=== PATIENT | male | born 1950 | race Caucasian/White ===

== ENCOUNTER 2016-08-05 13:21 | Outpatient (CLI) | payer MEDICARE ==
[2016-08-05 14:07] LABS: Hematocrit 35.9 % (42.0-52.0); Mean Platelet Volume 6.6 fL (7.4-10.4); Red Blood Cell (RBC) Count 3.75 mill/uL (4.70-6.10); White Blood Cell (WBC) Count 6.6 thou/uL (4.8-10.8)
[2016-08-05 14:22] LABS: Anion Gap 17 mmol/L (10-20); BUN (Urea Nitrogen) 10 mg/dL (8.4-25.7); Calc. Creatinine Clearance 0 mL/min (70-130); Calcium 9.2 mg/dL (7.8-10.44); Carbon Dioxide 23 mmol/L (23-31); Chloride 99 mmol/L (98-107); Estimated GFR-MDRD 84
== END 2016-08-05 13:22 | disposition home or self-care (01) ==
LOC: BURLAB 13:21
PROVIDERS: ATTEND Podiatrist Foot & Ankle Surgery
DX: Z01.818 Encounter for other preprocedural examination (principal); M20.11 Hallux valgus (acquired), right foot
CPT/HCPCS: 36415; 80048; 85027

== ENCOUNTER 2016-09-01 11:03 | Outpatient (CLI) | payer MEDICARE ==
[2016-09-01 12:34] LABS: Anion Gap 13 mmol/L (10-20); BUN (Urea Nitrogen) 10 mg/dL (8.4-25.7); Calc. Creatinine Clearance 0 mL/min (70-130); Calcium 9.1 mg/dL (7.8-10.44); Carbon Dioxide 23 mmol/L (23-31); Chloride 100 mmol/L (98-107); Estimated GFR-MDRD 85; Glucose 91 mg/dL (80-115); Potassium 4.2 mmol/L (3.5-5.1); Sodium 132 mmol/L (136-145)
== END 2016-09-01 11:04 | disposition home or self-care (01) ==
LOC: BURLAB 11:03
PROVIDERS: ATTEND Internal Medicine Cardiovascular Disease
DX: I10 Essential (primary) hypertension (principal)
CPT/HCPCS: 36415; 80048

== ENCOUNTER 2016-09-24 11:59 | Outpatient (CLI) | payer MEDICARE ==
[2016-09-24 12:39] LABS: ALT (SGPT) 22 U/L (0-55); AST (SGOT) 34 U/L (5-34); Albumin 3.9 g/dL (3.4-4.8); Alkaline Phosphatase 75 U/L (40-150); Anion Gap 16 mmol/L (10-20); BUN (Urea Nitrogen) 10 mg/dL (8.4-25.7); Bilirubin, Total 0.5 mg/dL (0.2-1.2); Calc. Creatinine Clearance 0 mL/min (70-130); Calcium 8.8 mg/dL (7.8-10.44); Carbon Dioxide 22 mmol/L (23-31); Cardiac Risk 3.2 (Less than 4.5); Chloride 94 mmol/L (98-107); Cholesterol 145 mg/dL (< 200 Desired); Estimated GFR-MDRD 68; Globulin 3.1 g/dL (2.4-3.5); Glucose 103 mg/dL (80-115); HDL Cholesterol 46 mg/dL (>60 Neg Risk); LDL Cholesterol, Calculated 83 mg/dL; Potassium 5.3 mmol/L (3.5-5.1); Sodium 127 mmol/L (136-145); Triglycerides 82 mg/dL (Less than 150)
[2016-09-24 12:58] LABS: PSA-Symptomatic (DIAGNOSTIC) Less than 0.02 ng/mL (0-4.0); Thyroid Stimulating Hormone 1.9321 uIU/mL (0.35-4.94)
[2016-09-24 13:39] LABS: Eosinophils 8 % (0-10); Hemoglobin 11.6 g/dL (14.0-18.0); Lymphocytes 17 % (21-51); MDiff Complete? YES; Mean Corpuscular HGB CONC 33.1 g/dL (32.0-36.0); Mean Corpuscular Hemoglobin 32.4 pg (27.0-31.0); Mean Corpuscular Volume 97.9 fl (80.0-94.0); Mean Platelet Volume 6.8 fL (7.4-10.4); Monocytes 16 % (0-10); Neutrophil 59 % (42-75); Platelet Count 348 thou/uL (130-400); RBC Distribution Width 11.3 % (11.5-14.5); Red Blood Cell (RBC) Count 3.59 mill/uL (4.70-6.10); White Blood Cell (WBC) Count 8.6 thou/uL (4.8-10.8)
== END 2016-09-24 12:00 | disposition home or self-care (01) ==
LOC: HPCALD 11:59
PROVIDERS: ATTEND Family Medicine
DX: C61 Malignant neoplasm of prostate (principal); I10 Essential (primary) hypertension
CPT/HCPCS: 36415; 80053; 80061; 84153; 84443; 85025

== ENCOUNTER 2017-06-28 09:17 | Emergency (ER) | payer MEDICARE ==
[2017-06-28 09:47] LABS: PTT 34.4 SEC (22.9-36.1); Prothrombin Time 13.1 SEC (12.0-14.7)
[2017-06-28] MEDS ORDERED: Morphine 4 MG/ML Carpuject ONE (09:55)
[2017-06-28 09:56] LABS: ALT (SGPT) 76 U/L (8-55); AST (SGOT) 67 U/L (5-34); Albumin 3.8 g/dL (3.4-4.8); Alkaline Phosphatase 93 U/L (40-150); Anion Gap 17 mmol/L (10-20); BUN (Urea Nitrogen) 8 mg/dL (8.4-25.7); Bilirubin, Total 0.8 mg/dL (0.2-1.2); Calc. Creatinine Clearance 0 mL/min (70-130); Calcium 8.9 mg/dL (7.8-10.44); Carbon Dioxide 18 mmol/L (23-31); Chloride 92 mmol/L (98-107); Estimated GFR-MDRD 87; Globulin 3.8 g/dL (2.4-3.5); Glucose 126 mg/dL (80-115); Potassium 3.3 mmol/L (3.5-5.1); Protein, Total 7.6 g/dL (5.8-8.1); Sodium 124 mmol/L (136-145)
[2017-06-28] MEDS ORDERED: Metoprolol Tartrate 5 MG/5 ML VIAL ONE (09:56)
[2017-06-28] MEDS ORDERED: methylPREDNISolone Sod Succ/PF 125 MG/2 ML VIAL ONE (09:56)
[2017-06-28] MEDS ORDERED: cefTRIAXone\\ROCEPHIN 2 GM VIAL ONE (09:56)
[2017-06-28 09:57] LABS: #Basophils 0.1 thou/uL (0.0-0.2); #Lymphocytes 0.7 thou/uL (1.20-3.40); #Monocytes 0.9 thou/uL (0.11-0.59); #Neutrophils 5.9 thou/uL (1.40-6.50); %Basophils 1.4 % (0.0-1.0); %Eosinophils 0.2 % (0.0-10.0); %Lymphocytes 9.5 % (21.0-51.0); %Monocytes 12.1 % (0.0-10.0); %Neutrophils 76.9 % (42.0-75.0); Hemoglobin 10.9 g/dL (14.0-18.0); Mean Corpuscular HGB CONC 35.4 g/dL (32.0-36.0); Mean Corpuscular Hemoglobin 32.7 pg (27.0-31.0); Mean Corpuscular Volume 92.4 fl (80.0-94.0); Mean Platelet Volume 6.7 fL (7.4-10.4); Platelet Count 230 thou/uL (130-400); RBC Distribution Width 11.3 % (11.5-14.5); Red Blood Cell (RBC) Count 3.35 mill/uL (4.70-6.10); White Blood Cell (WBC) Count 7.7 thou/uL (4.8-10.8)
[2017-06-28] MEDS ORDERED: Sterile Water 20 ML ONE (10:01)
[2017-06-28] MEDS ORDERED: Sterile Water 10 ML ONE (10:02)
[2017-06-28] MEDS ORDERED: Furosemide 40 MG/4 ML VIAL ONE (10:22)
[2017-06-28] MEDS ORDERED: Oseltamivir 75 MG CAP ONE (10:22)
[2017-06-28 10:27] LABS: Troponin I 0.038 ng/mL (< 0.028)
[2017-06-28 10:30] LABS: CKMB 11.7 ng/mL (0-6.6)
--- NOTE | 2017-06-28 21:09 | RAD ---
PORTABLE CHEST 06/28/17 An AP portable film a [id number] is compared with a 05/29/13 study done at [facility]. The heart size remains normal. Median sternotomy sutures are seen from prior surgery. The left lung i s clear. There is a very vague rounded opacity near the right hilum that measures about 1.9 cm in siz e. I cannot tell if this is an actual mass, a confluence of shadows, or a small patchy infiltrate. I would recommend considerable an elective CT scan of the thorax to remove all doubt. If not that, at t he very least, a good PA chest should be done to take a second look at the area. There are no congest waqar changes or pleural effusions. Degenerative changes are present, particularly in the right shoulde r. IMPRESSION: Vague rounded density near the right hilum of uncertain etiology. See discussion above. Further robert p required; CT preferred. Code T POS: HOME
== END 2017-06-28 11:46 | disposition short-term general hospital (02) ==
LOC: BURERS 09:17
DX: J11.00 Influenza due to unidentified influenza virus with unspecified type of pneumonia (principal); E87.1 Hypo-osmolality and hyponatremia; E78.5 Hyperlipidemia, unspecified; I11.0 Hypertensive heart disease with heart failure; I50.9 Heart failure, unspecified; I25.10 Atherosclerotic heart disease of native coronary artery without angina pectoris; Z79.899 Other long term (current) drug therapy
CPT/HCPCS: 36415; 71045; 80053; 82553; 83605; 83880; 84484; 85025; 85610; 85730; 87040; 93005; 94760; 96374; 96375; A4216; J0696; J1940; J2270; J2930; J7620

== ENCOUNTER 2019-06-01 10:55 | Emergency (ER) | payer MEDICARE ==
[2019-06-01 11:41] LABS: Hemoglobin 5.6 g/dL (14.0-18.0); Mean Corpuscular HGB CONC 30.8 g/dL (32.0-36.0); Mean Corpuscular Hemoglobin 23.8 pg (27.0-31.0); Mean Corpuscular Volume 77.2 fL (78.0-98.0); Mean Platelet Volume 7.1 fL (7.4-10.4); Platelet Count 415 thou/uL (130-400); RBC Distribution Width 15.4 % (11.5-14.5); Red Blood Cell (RBC) Count 2.33 mill/uL (4.70-6.10); White Blood Cell (WBC) Count 6.4 thou/uL (4.8-10.8)
[2019-06-01 11:58] LABS: ALT (SGPT) 20 U/L (8-55); AST (SGOT) 27 U/L (5-34); Albumin 3.5 g/dL (3.4-4.8); Alkaline Phosphatase 69 U/L (40-110); Anion Gap 16 mmol/L (10-20); BUN (Urea Nitrogen) 26 mg/dL (8.4-25.7); Bilirubin, Total 0.6 mg/dL (0.2-1.2); CK (CPK) 209 U/L (30-200); Calc. Creatinine Clearance 0 mL/min (70-130); Calcium 8.6 mg/dL (7.8-10.44); Carbon Dioxide 24 mmol/L (23-31); Chloride 88 mmol/L (98-107); Estimated GFR-MDRD 34; Globulin 2.6 g/dL (2.4-3.5); Glucose 99 mg/dL (80-115); Lipase 19 U/L (8-78); Protein, Total 6.1 g/dL (5.8-8.1); Sodium 125 mmol/L (136-145)
[2019-06-01 12:04] LABS: Burr Cells MODERATE= 6-15 cells (100X) (0-1/hpf); Elliptocytes SLIGHT = 2-5 cells (100X) (0-1/hpf); Eosinophils 5 % (0-10); Lymphocytes 22 % (21-51); MDiff Complete? YES; Microcytosis SLIGHT = 6-15 cells (100X) (0-5/hpf); Monocytes 15 % (0-10); Neutrophil 58 % (42-75); Platelet Morphology Comment Appears Increased; Poikilocytosis MODERATE=16-30 cells (100X) (0-5/hpf); Schistocytes SLIGHT = 2-5 cells (100X) (0-1/hpf)
[2019-06-01] MEDS ORDERED: Pantoprazole 40 MG VIAL ONE (12:12)
[2019-06-01 13:01] LABS: CKMB 7.6 ng/mL (0-6.6)
== END 2019-06-01 12:05 | disposition home or self-care (01) ==
LOC: BURERS 10:55
DX: D64.9 Anemia, unspecified (principal); E86.0 Dehydration; E87.1 Hypo-osmolality and hyponatremia; I25.10 Atherosclerotic heart disease of native coronary artery without angina pectoris; E78.5 Hyperlipidemia, unspecified; E78.00 Pure hypercholesterolemia, unspecified; I10 Essential (primary) hypertension; Z85.46 Personal history of malignant neoplasm of prostate; Z79.82 Long term (current) use of aspirin; Z79.899 Other long term (current) drug therapy
CPT/HCPCS: 80053; 82550; 82553; 83690; 84484; 85025; 93005; 96374; C9113

== ENCOUNTER 2020-02-05 13:05 | Outpatient (CLI) | payer MEDICARE ==
--- NOTE | 2020-02-05 19:50 | RAD ---
SACRUM AND COCCYX: 02/05/20 The bones are osteopenic which could mask subtle bony injuries. The overall appearance of the bones i s slightly mottled which may just be due to overlying gas and fecal material, but it would be difficu lt to completely exclude other pathology. No gross sacral or coccygeal fracture was seen. The pubic r ings appear intact. Subtle changes or injuries to the bone would be better seen with MRI. IMPRESSION: No definite acute findings. POS: HOME
--- NOTE | 2020-02-05 20:02 | RAD ---
LUMBAR SPINE 02/05/20 Comparison is made with the measuring machine operator view from a [address] In the interval, there has been v brenna extensive fusion of the spine from the T10 through sacral levels with pedicle screws at each lev el and rods. Additional fixation devices have been placed at the L3-L4 and L5-S1 levels. All of this has occurred since the 2010 study. 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 Presumably synthetic discs are present at L3-L4 and L5-S1. There is a yeimy le disc space narrowing at L4-L5, L1-L2, L2-L3. There is some very slight compression of the superior end plate of L1. Other than this, no new fractures were identified. The SI joints seem symmetrical. Dense arteriosclerotic change is seen in the aorta and iliac arteries. IMPRESSION: Extensive postoperative changes. The only potentially acute change is the beginnings of very slight c ompression of the superior end plate of L1 when compared to the 2010 CT. POS: HOME
== END 2020-02-05 13:06 | disposition home or self-care (01) ==
LOC: BURRAD 13:05
PROVIDERS: ATTEND Family Medicine
DX: M54.5 Low back pain (principal); Z98.890 Other specified postprocedural states
CPT/HCPCS: 72120; 72220

== ENCOUNTER 2025-02-11 11:39 | Outpatient (CLI) | payer MEDICARE | END 2025-02-11 11:40 | disposition home or self-care (01) | LOC: BURRAD 11:39 | DX: M47.812 Spondylosis without myelopathy or radiculopathy, cervical region (principal); Z98.1 Arthrodesis status | CPT/HCPCS: 72040 ==